=== PATIENT | female | born 1990 | race Caucasian/White ===

== ENCOUNTER 2017-06-26 18:33 | Emergency (ER) | payer BC, MEDICAID ==
[2017-06-26 19:04] VITALS: BP 97/65
[2017-06-26] MEDS ORDERED: Ketorolac 30 MG/ML SDV IVPUSH ONE (19:21)
[2017-06-26] MEDS ORDERED: Sodium Chloride 0.9% 1,000 ML IV ONE (19:21)
--- NOTE | 2017-06-26 19:26 | EDM.PDOC ---
ED HPI GENERAL MEDICAL PROBLEM - General Chief Complaint: ENT Problem Stated Complaint: fever sore throat Time Seen by Provider: 06/26/17 19:05 Source of Information: Reports: Patient, RN Notes Reviewed History Limitations: Reports: No Limitations - History of Present Illness INITIAL COMMENTS - FREE TEXT/NARRATIVE: 26 year old female presents to the ED with 2-3 day history of fever, throat pain , and difficulty swallowing. She has a history of frequent tonsillitis and history of retropharyngeal abscess about 1 year ago. She has not been eating or drinking much due to the pain. She feels lightheaded at times. No syncope. Her fever has been as high as 103.8 at home. She's been able to manage her fever at home with motrin and cool showers. She has a 2 month old and is currently . She feels that her milk supply has dropped and is possibly dehydrated. She denies sinus congestion, runny nose, cough, shortness of breath. She is accompanied by her who is relaying some of the information as she is reluctant to talk due to pain. 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 Throat Pain Score (Numeric/FACES): 7 - Related Data Allergies Allergy/AdvReac Type Severity Reaction Status Date / Time No Known Allergies Allergy Verified 06/26/17 19:04 Home Meds: Home Meds Clindamycin HCl 450 mg PO TID #90 capsule 06/26/17 [Rx] Past Medical History HEENT History: Reports: Other (See Below) Other HEENT History: tubes in ear [employer] History: Reports: - Past Surgical History Female Surgical History: Reports: Section Social & Family History - Tobacco Use Smoking Status *Q: Never Smoker - Caffeine Use Caffeine Use: Reports: None - Recreational Drug Use Recreational Drug Use: No ED ROS ENT - Review of Systems Review Of Systems: See Below Constitutional: Reports: Fever, Chills, Night Sweats, Diaphoresis HEENT: Reports: Ear Pain (right ), Throat Pain, Throat Swelling. Denies: Rhinitis, Sinus Problem Respiratory: Reports: No Symptoms. Denies: Shortness of Breath, Cough Cardiovascular: Reports: No Symptoms. Denies: Chest Pain GI/Abdominal: Reports: No Symptoms. Denies: Abdominal Pain, Diarrhea, Nausea, Vomiting Skin: Reports: No Symptoms. Denies: Rash ED EXAM, ENT - Physical Exam Exam: See Below Exam Limited By: No Limitations General Appearance: Alert, WD/WN, Anxious, Moderate Distress Ears: Normal External Exam, Normal Canal, Hearing Grossly Normal, Normal TMs Nose: Normal Inspection, Normal Mucousa, No Blood Mouth/Throat: Dry Mucous Membrane, Throat Pain, Tonsillar Erythema, Tonsillar Exudates, Tonsillar Swelling. No: Drooling, Peritonsillar Mass, Uvular Deviation Head: Atraumatic, Normocephalic Neck: Lymphadenopathy (L), Lymphadenopathy (R), Tender Lateral Respiratory/Chest: No Respiratory Distress, Lungs Clear, Normal Breath Sounds, No Accessory Muscle Use, Chest Non-Tender Cardiovascular: Normal Peripheral Pulses, Regular Rate, Rhythm, No Murmur GI/Abdominal: Normal Bowel Sounds, Soft, Non-Tender Neurological: Alert, Normal Cognition Skin: Warm, Dry, Intact, No Rash Course - Vital Signs Last Recorded V/S: Last Vital Signs Temp 102.5 F H 06/26/17 18:52 Pulse 137 H 06/26/17 18:52 Resp 14 06/26/17 18:52 BP 97/65 06/26/17 18:52 Pulse Ox 96 06/26/17 18:52 - Orders/Labs/Meds Orders: Active Orders 24 hr Category Date Time Status Peripheral IV Care [RC] . DIRECTED Care 06/26/17 19:22 Active Soft Tissue Neck w Cont [CT] Stat Exams 06/26/17 20:37 Taken CULTURE STREP A CONFIRMATION [RM] Stat Lab 06/26/17 19:35 Results Rapid Strep w/culture conf [STREP SCRN A RAPID W CULT Lab 06/26/17 19:35 Results CONF] [RM] Stat Sodium Chloride 0.9% [Saline Flush] Med 06/26/17 19:21 Active 10 ml FLUSH ASDIRECTED PRN Peripheral IV Insertion Adult [OM.PC] Stat Oth 06/26/17 19:21 Ordered Medication Orders Sodium Chloride (Saline Flush) 10 ml FLUSH ASDIRECTED PRN PRN Reason: Keep Vein Open Last Admin: 06/26/17 21:09 Dose: 10 ml Admin: 06/26/17 19:34 Dose: 10 ml Labs: Laboratory Tests 06/26/17 06/26/17 06/26/17 Range/Units 19:35 19:35 19:35 WBC 17.84 H (3.98-10.04) K/mm3 RBC 4.93 (3.98-5.22) M/mm3 Hgb 13.7 (11.2-15.7) gm/L Hct 40.9 (34.1-44.9) % MCV 83.0 (79.4-94.8) fl MCH 27.8 (25.6-32.2) pg MCHC 33.5 (32.2-35.5) g/dl RDW Std Deviation 38.9 (36.4-46.3) fL Plt Count 164 L (182-369) K/mm3 MPV 12.3 (9.4-12.3) fl Neut % (Auto) 83.7 H (34.0-71.1) % Lymph % (Auto) 7.4 L (19.3-51.7) % Turner % (Auto) 8.6 (4.7-12.5) % Eos % (Auto) 0 L (0.7-5.8) Baso % (Auto) 0.1 (0.1-1.2) % Neut # (Auto) 14.93 H (1.56-6.13) K/mm3 Lymph # (Auto) 1.32 (1.18-3.74) K/mm3 Turner # (Auto) 1.54 H (0.24-0.36) K/mm3 Eos # (Auto) 0.00 L (0.04-0.36) K/mm3 Baso # (Auto) 0.01 (0.01-0.08) K/mm3 Manual Slide Review Normal smear Sodium 138 (136-145) mEq/L Potassium 3.7 (3.5-5.1) mEq/L Chloride 103 (98-107) mEq/L Carbon Dioxide 26 (21-32) mEq/L Anion Gap 12.7 (5-15) BUN 13 (7-18) mg/dL Creatinine 1.1 H (0.55-1.02) mg/dL Est Cr Clr Drug Dosing 62.37 mL/min Estimated GFR (MDRD) > 60 (>60) mL/min BUN/Creatinine Ratio 11.8 L (14-18) Glucose 113 H (74-106) mg/dL Calcium 9.1 (8.5-10.1) mg/dL Total Bilirubin 0.5 (0.2-1.0) mg/dL AST 18 (15-37) U/L ALT 25 (14-59) U/L Alkaline Phosphatase 100 (46-116) U/L C-Reactive Protein 35.7 H* (<1.0) mg/dL Total Protein 8.1 (6.4-8.2) g/dl Albumin 3.7 (3.4-5.0) g/dl Globulin 4.4 gm/dL Albumin/Globulin Ratio 0.8 L (1-2) Urine HCG, Qual (NEGATIVE) Monoscreen Negative (NEGATIVE) 06/26/17 Range/Units 20:45 WBC (3.98-10.04) K/mm3 RBC (3.98-5.22) M/mm3 Hgb (11.2-15.7) gm/L Hct (34.1-44.9) % MCV (79.4-94.8) fl MCH (25.6-32.2) pg MCHC (32.2-35.5) g/dl RDW Std Deviation (36.4-46.3) fL Plt Count (182-369) K/mm3 MPV (9.4-12.3) fl Neut % (Auto) (34.0-71.1) % Lymph % (Auto) (19.3-51.7) % Turner % (Auto) (4.7-12.5) % Eos % (Auto) (0.7-5.8) Baso % (Auto) (0.1-1.2) % Neut # (Auto) (1.56-6.13) K/mm3 Lymph # (Auto) (1.18-3.74) K/mm3 Turner # (Auto) (0.24-0.36) K/mm3 Eos # (Auto) (0.04-0.36) K/mm3 Baso # (Auto) (0.01-0.08) K/mm3 Manual Slide Review Sodium (136-145) mEq/L Potassium (3.5-5.1) mEq/L Chloride (98-107) mEq/L Carbon Dioxide (21-32) mEq/L Anion Gap (5-15) BUN (7-18) mg/dL Creatinine (0.55-1.02) mg/dL Est Cr Clr Drug Dosing mL/min Estimated GFR (MDRD) (>60) mL/min BUN/Creatinine Ratio (14-18) Glucose (74-106) mg/dL Calcium (8.5-10.1) mg/dL Total Bilirubin (0.2-1.0) mg/dL AST (15-37) U/L ALT (14-59) U/L Alkaline Phosphatase (46-116) U/L C-Reactive Protein (<1.0) mg/dL Total Protein (6.4-8.2) g/dl Albumin (3.4-5.0) g/dl Globulin gm/dL Albumin/Globulin Ratio (1-2) Urine HCG, Qual Negative (NEGATIVE) Monoscreen (NEGATIVE) Meds: Medications Generic Name Dose Route Start Last Admin Trade Name Freq PRN Reason Stop Dose Admin Sodium Chloride 10 ml 06/26/17 19:21 06/26/17 21:09 Saline Flush FLUSH 10 ml ASDIRECTED PRN Administration Keep Vein Open Discontinued Medications Generic Name Dose Route Start Last Admin Trade Name Freq PRN Reason Stop Dose Admin Sodium Chloride 1,000 mls @ 999 mls/hr 06/26/17 19:21 06/26/17 19:31 Normal Saline IV 06/26/17 20:21 999 mls/hr ONETIME ONE Administration Clindamycin Phosphate 600 mg/ 104 mls @ 100 mls/hr 06/26/17 20:43 06/26/17 20 :55 Sodium Chloride IV 06/26/17 21:45 100 mls/hr ONETIME ONE Administration Iopamidol 80 ml 06/26/17 20:47 06/26/17 21:06 Isovue-300 (61%) IVPUSH 06/26/17 20:48 80 ml ONETIME ONE Administration Ketorolac Tromethamine 30 mg 06/26/17 19:21 06/26/17 19:32 Toradol IVPUSH 06/26/17 19:22 30 mg ONETIME ONE Administration - Re-Assessments/Exams Free Text/Narrative Re-Assessment/Exam: WBC is elevated at 17,000 and CRP is 35. CMP is unremarkable. Strep negative. Turner negative. Hcg negative. Patient was reluctant to talk when she first arrived. Her BP was on the 80s systolic and her HR was 100-125 bpm indicating volume depletion. Initial treatment included pain medication and 1 liter NS bolus. After the pain medication, I reassessed the patient and noticed that she had an obvious hot- potato voice. CT soft tissue neck was ordered with IV contrast. Clindamycin 600mg IV ordered. 2129 CT soft tissue neck read by [facility], impression: 1. acute tonsillitis without evidence of tonsillar/peritonsillar abscess. Reactive cervical adenopathy. Patient was reassured. Will start her on clinda 450mg PO TID x10 days. Clinda is safe while . Departure - Departure Time of Disposition: 21:44 Disposition: Home, Self-Care 01 Condition: Good Clinical Impression: Tonsillitis - Discharge Information Prescriptions: Clindamycin HCl 450 mg PO TID #90 capsule Instructions: Tonsillitis, [id number] Referrals: Stephani Ferreira MD [Primary Care Provider] - Forms: ED Department Discharge Additional Instructions: Clindamycin 450mg 3 times a day for a total of 10 days I recommend you take a probiotic as well as your . [employer] yasiriss makes an infant probiotic. Tylenol or Ibuprofen as needed for pain or fever Drink plenty of fluids to stay well hydrated. Return to ER with new or worsening symptoms. - My Orders Last 24 Hours: My Active Orders 06/26/17 19:21 Sodium Chloride 0.9% [Saline Flush] 10 ml FLUSH ASDIRECTED PRN Peripheral IV Insertion Adult [OM.PC] Stat 06/26/17 19:22 Peripheral IV Care [RC] . DIRECTED 06/26/17 19:35 CULTURE STREP A CONFIRMATION [RM] Stat Rapid Strep w/culture conf [STREP SCRN A RAPID W CULT CONF] [RM] Stat 06/26/17 20:37 Soft Tissue Neck w Cont [CT] Stat - Assessment/Plan Last 24 Hours: My Active Orders 06/26/17 19:21 Sodium Chloride 0.9% [Saline Flush] 10 ml FLUSH ASDIRECTED PRN Peripheral IV Insertion Adult [OM.PC] Stat 06/26/17 19:22 Peripheral IV Care [RC] . DIRECTED 06/26/17 19:35 CULTURE STREP A CONFIRMATION [RM] Stat Rapid Strep w/culture conf [STREP SCRN A RAPID W CULT CONF] [RM] Stat 06/26/17 20:37 Soft Tissue Neck w Cont [CT] Stat
[2017-06-26] MEDS: Sodium Chloride 0.9% 10 ML Syringe FLUSH PRN ×2 (19:34→21:09)
[2017-06-26] MEDS ORDERED: Clindamycin Phosphate 600 MG in Sodium Chloride 0.9% 100 ML IV ONE (20:43)
[2017-06-26] MEDS ORDERED: Iopamidol 612 MG/ML 100 ML Bottle IVPUSH ONE (20:47)
--- NOTE | 2017-06-27 08:20 | CT ---
CT soft tissue neck Technique: Multiple axial sections were obtained from the top of the external auditory canals inferiorly to the lung apices. Intravenous contrast was utilized. Findings: Enlargement of the palatine tonsils is noted which contains low density edema. Findings are felt compatible with early phlegmon without definite abscess at this time. No other soft tissue swelling is identified. Parotid and submandibular salivary glands are within normal limits. Paranasal sinuses are within normal limits. Several slightly prominent lymph nodes are seen which are felt to be reactive. Visualized lung apices are clear. Bone window settings were reviewed which show kyphosis within the spine which is possibly positional. Epiglottis appears normal in size. Prevertebral soft tissues are normal in size. Impression: 1. Enlargement of the palatine tonsils with low density edema and early phlegmon formation. No discrete abscess is seen at this time. 2. Several slightly prominent lymph nodes which are believed to be reactive. Diagnostic code #3 Agree with preliminary report issued by [employer] ([facility] preliminary report dictated on 06/26/17, 10:15 PM Central Time)
== END 2017-06-26 22:19 | disposition home or self-care (01) ==
LOC: JD.ED 18:33
DX: J03.90 Acute tonsillitis, unspecified (principal)
CPT/HCPCS: 36415; 70491; 80053; 81025; 85025; 86140; 86308; 87081; 87430; 96361; 96365; 96375; 99284; J1885; J7030; J7040; J7050; Q9967